=== PATIENT | male | born 1990 | race African-American/Black ===

== ENCOUNTER → 2020-08-19 | Outpatient (CLI) | payer OTHER | LOC: SJCVC 13:37 | PROVIDERS: ATTEND Internal Medicine | DX: Z13.220 Encounter for screening for lipoid disorders (principal); R00.0 Tachycardia, unspecified; J45.909 Unspecified asthma, uncomplicated; E11.22 Type 2 diabetes mellitus with diabetic chronic kidney disease; I12.9 Hypertensive chronic kidney disease with stage 1 through stage 4 chronic kidney disease, or unspecified chronic kidney disease; N18.9 Chronic kidney disease, unspecified; R06.00 Dyspnea, unspecified; Z87.891 Personal history of nicotine dependence; Z79.4 Long term (current) use of insulin; Z79.899 Other long term (current) drug therapy ==

== ENCOUNTER → 2020-08-24 | Outpatient (CLI) | payer OTHER | LOC: SJCVCIMAG 08:52 | PROVIDERS: ATTEND Internal Medicine | DX: I08.2 Rheumatic disorders of both aortic and tricuspid valves (principal); M79.89 Other specified soft tissue disorders; M79.602 Pain in left arm; E10.22 Type 1 diabetes mellitus with diabetic chronic kidney disease; I13.10 Hypertensive heart and chronic kidney disease without heart failure, with stage 1 through stage 4 chronic kidney disease, or unspecified chronic kidney disease; N18.9 Chronic kidney disease, unspecified; J45.909 Unspecified asthma, uncomplicated; Z99.2 Dependence on renal dialysis; Z98.890 Other specified postprocedural states; Z79.899 Other long term (current) drug therapy; Z87.891 Personal history of nicotine dependence ==

== ENCOUNTER → 2020-09-07 | Outpatient (CLI) | payer OTHER | LOC: SJCVC 10:36 | PROVIDERS: ATTEND Internal Medicine | DX: I12.9 Hypertensive chronic kidney disease with stage 1 through stage 4 chronic kidney disease, or unspecified chronic kidney disease (principal); N18.9 Chronic kidney disease, unspecified; E10.22 Type 1 diabetes mellitus with diabetic chronic kidney disease; J45.909 Unspecified asthma, uncomplicated; R01.1 Cardiac murmur, unspecified; M79.89 Other specified soft tissue disorders; Z99.2 Dependence on renal dialysis; Z79.899 Other long term (current) drug therapy; Z87.891 Personal history of nicotine dependence ==

== ENCOUNTER → 2020-11-19 | Outpatient (CLI) | payer OTHER | LOC: CAT 13:38 | DX: T81.31XA Disruption of external operation (surgical) wound, not elsewhere classified, initial encounter (principal); I70.0 Atherosclerosis of aorta; R18.8 Other ascites; Y83.8 Other surgical procedures as the cause of abnormal reaction of the patient, or of later complication, without mention of misadventure at the time of the procedure; Y82.8 Other medical devices associated with adverse incidents; Z90.5 Acquired absence of kidney ==

== ENCOUNTER 2021-03-14 16:37 | Emergency (ER) | payer OTHER ==
[~2021-03-14] VITALS: Ht 180.3 cm; Wt 74.8 kg
[2021-03-14 17:43] LABS: ABSOLUTE NEUTROPHILS 2.8 thou/uL (1.4-8.2); BASOPHILS 1.2 % (0.0-2.0); EOSINOPHILS 7.3 % (0.0-3.0); HEMATOCRIT 32.7 % (42.0-52.0); HEMOGLOBIN 10.2 gm/dL (14.0-18.0); MCH 27.8 pg (26.0-34.0); MCHC 31.2 g/dL (28.0-37.0); MCV 89.1 fL (80.0-100.0); MONOCYTES 8.1 % (1.0-8.0); PLATELET COUNT 275 thou/uL (150-400); POLYS 62.4 % (36.0-66.0); RBC 3.67 mil/uL (4.50-6.00); RDW 18.5 % (10.5-14.5); WBC 4.5 thou/uL (4.0-11.0)
[2021-03-14 17:46] LABS: ANION GAP 10 mmol/L (7-16); BUN 57 mg/dL (7-18); CALCIUM 6.8 mg/dL (8.5-10.1); CHLORIDE 92 mmol/L (98-107); CO2 27 mmol/L (21-32); CREATININE 14.1 mg/dL (0.7-1.3); GLUCOSE 392 mg/dL (74-106); POTASSIUM 3.4 mmol/L (3.5-5.1); SODIUM 129 mmol/L (136-145)
[2021-03-14 17:51] LABS: ALBUMIN 2.4 g/dL (3.4-5.0); DIRECT BILIRUBIN < 0.1 mg/dL (<0.1-0.2); LIPASE 241 U/L (73-393); SGOT 29 U/L (15-37); SGPT 67 U/L (16-63); TOTAL BILIRUBIN 0.2 mg/dL (0.2-1.0); TOTAL PROTEIN 6.9 g/dL (6.4-8.2)
[2021-03-14 20:58] LABS: ANISOCYTOSIS 2+
[2021-03-14 21:01] VITALS: BP 143/95
--- NOTE | 2021-03-16 07:12 | EKG ---
[place] [address] [facility] [employer] [place] [address] ELECTROCARDIOGRAM REPORT Name: EM ACEVES Room #: [facility]P [facility] [id number] Admission: 03/14/21 Attend Phys: Discharge: 03/14/21 Date of : 86 Report #: [id number] [facility] ED Test Date: 2021-03-14 Test Time: 17:04:38 Pat Name: EM ACEVES Department: Room: Gender: Check Weigher: : 1990 Requested By: Mehul Sawant Order Number: [id number] MD: Kiran Suero Measurements Intervals [place] Rate: 120 P: 82 AL: 144 QRS: 54 QRSD: 88 T: -46 QT: 341 QTc: 482 Interpretive Statements Sinus tachycardia Probable left atrial enlargement Borderline T abnormalities, diffuse leads Borderline prolonged QT interval No previous ECG available for comparison Electronically Signed On 03-16-2021 7:12:03 KEY ACCOUNT EXECUTIVE by Kiran Suero [email or web address] <ELECTRONICALLY SIGNED> By: Kiran Suero MD, [facility] 03/16/21 0712 1704 1704 Kiran Suero MD, FACC /EPI
== END 2021-03-14 21:03 | disposition home or self-care (01) ==
LOC: ER 16:37
PROVIDERS: Nurse Practitioner
DX: T85.848A Pain due to other internal prosthetic devices, implants and grafts, initial encounter (principal); Z20.822 Contact with and (suspected) exposure to COVID-19; R06.02 Shortness of breath; X58.XXXA Exposure to other specified factors, initial encounter